=== PATIENT | female | born 1980 | race Caucasian/White ===

== ENCOUNTER → 2018-12-16 | Outpatient (CLI) | payer OTHER ==
[2018-12-16 11:07] LABS: ABSOLUTE LYMPHOCYTES 2.8 thou/uL (0.8-5.3); ABSOLUTE MONOCYTES 0.5 thou/uL (0.0-1.2); ABSOLUTE NEUTROPHILS 5.2 thou/uL (1.6-8.1); BASOPHILS 0.6 %; EOSINOPHILS 0.4 %; HEMATOCRIT 42.6 % (37.0-47.0); HEMOGLOBIN 14.5 gm/dL (12.0-15.0); LYMPHOCYTES 32.2 %; MCH 30.8 pg (26.0-34.0); MCV 90.4 fL (80.0-100.0); NUCLEATED RBCS 0 /100WBC; PLATELET COUNT* 511 thou/uL (150-400); POLYS 60.8 %; RBC 4.71 mil/uL (4.20-5.00); RDW-CV 12.8 % (10.5-14.5); WBC 8.6 thou/uL (4.0-11.0)
[2018-12-16 11:29] LABS: ALBUMIN 4.2 g/dL (3.4-5.0); CALCIUM 11.5 mg/dL (8.5-10.1); CREATININE 0.8 mg/dL (0.6-1.3); POTASSIUM 4.3 mmol/L (3.5-5.1); TOTAL BILIRUBIN 0.6 mg/dL (<0.1-1.0); TOTAL PROTEIN 7.5 g/dL (6.4-8.2)
== END ==
LOC: M.LAB 10:49
PROVIDERS: Family Medicine
DX: N83.202 Unspecified ovarian cyst, left side (principal); K76.0 Fatty (change of) liver, not elsewhere classified; M54.5 Low back pain

== ENCOUNTER → 2019-01-01 | Outpatient (CLI) | payer OTHER ==
[2019-01-01 07:48] LABS: ABSOLUTE LYMPHOCYTES 1.7 thou/uL (0.8-5.3); ABSOLUTE MONOCYTES 0.5 thou/uL (0.0-1.2); ABSOLUTE NEUTROPHILS 4.7 thou/uL (1.6-8.1); BASOPHILS 0.6 %; EOSINOPHILS 0.7 %; HEMATOCRIT 40.5 % (37.0-47.0); HEMOGLOBIN 13.7 gm/dL (12.0-15.0); LYMPHOCYTES 24.1 %; MCH 30.9 pg (26.0-34.0); MCHC 33.8 g/dL (28.0-37.0); MCV 91.5 fL (80.0-100.0); MONOCYTES 6.7 %; NUCLEATED RBCS 0 /100WBC; PLATELET COUNT* 444 thou/uL (150-400); POLYS 67.9 %; RBC 4.43 mil/uL (4.20-5.00); RDW-CV 13.5 % (10.5-14.5)
[2019-01-01 08:03] LABS: CALCIUM 8.9 mg/dL (8.5-10.1); CREATININE 0.8 mg/dL (0.6-1.3); PHOSPHORUS* 2.7 mg/dL (2.5-4.9)
[2019-01-01 08:08] LABS: ALBUMIN 3.9 g/dL (3.4-5.0); CALCIUM 9.6 mg/dL (8.5-10.1); CREATININE 0.8 mg/dL (0.6-1.3); POTASSIUM 4.1 mmol/L (3.5-5.1); TOTAL BILIRUBIN 0.5 mg/dL (<0.1-1.0); TOTAL PROTEIN 7.8 g/dL (6.4-8.2)
[2019-01-01 22:42] LABS: CHOLESTEROL 159 mg/dL (<200); HDL CHOLESTEROL 38 mg/dL (>40); LDL CHOLESTEROL 106 mg/dL (<100); TC:HDL 4.2 Ratio (Not establshd); TRIGLYCERIDE 76 mg/dL (<150); VLDL 15 mg/dL (<40)
[2019-01-01 22:44] LABS: SERUM ASSESSMENT Clear
[2019-01-01 23:07] LABS: GLYCOHEMOGLOBIN (HGB A1C) 5.9 % (4.8-5.6)
== END ==
LOC: M.LAB 07:21
PROVIDERS: Family Medicine
DX: E83.52 Hypercalcemia (principal); E11.9 Type 2 diabetes mellitus without complications

== ENCOUNTER → 2019-04-11 | Outpatient (CLI) | payer OTHER ==
[2019-04-11 08:20] LABS: ABSOLUTE MONOCYTES 0.5 thou/uL (0.0-1.2); ABSOLUTE NEUTROPHILS 3.7 thou/uL (1.6-8.1); BASOPHILS 0.5 %; EOSINOPHILS 0.6 %; HEMATOCRIT 43.6 % (37.0-47.0); HEMOGLOBIN 14.8 gm/dL (12.0-15.0); MCH 31.5 pg (26.0-34.0); MCHC 34.1 g/dL (28.0-37.0); MCV 92.5 fL (80.0-100.0); MONOCYTES 7.7 %; MPV 6.9 fl. (7.2-11.1); NUCLEATED RBCS 0 /100WBC; PLATELET COUNT* 488 thou/uL (150-400); POLYS 59.2 %; RBC 4.71 mil/uL (4.20-5.00); RDW-CV 13.5 % (10.5-14.5); WBC 6.3 thou/uL (4.0-11.0)
[2019-04-11 08:31] LABS: ALBUMIN 4.3 g/dL (3.4-5.0); ALKALINE PHOSPHATASE 63 U/L (46-116); ANION GAP 8 mmol/L (7-16); BUN 13 mg/dL (7-18); CALCIUM 9.3 mg/dL (8.5-10.1); CHLORIDE 103 mmol/L (98-107); CHOLESTEROL 164 mg/dL (<200); CO2 29 mmol/L (21-32); CREATININE 0.7 mg/dL (0.6-1.3); GLUCOSE 83 mg/dL (70-99); HDL CHOLESTEROL 38 mg/dL (>40); LDL CHOLESTEROL 105 mg/dL (<100); POTASSIUM 4.6 mmol/L (3.5-5.1); SGOT 16 U/L (15-37); SGPT 33 U/L (30-65); SODIUM 140 mmol/L (136-145); TC:HDL 4.3 Ratio (Not establshd); TOTAL BILIRUBIN 0.4 mg/dL (<0.1-1.0); TOTAL PROTEIN 7.9 g/dL (6.4-8.2); TRIGLYCERIDE 106 mg/dL (<150); VLDL 21 mg/dL (<40)
[2019-04-11 08:41] LABS: SERUM ASSESSMENT Clear
[2019-04-11 23:07] LABS: GLYCOHEMOGLOBIN (HGB A1C) 5.5 % (4.8-5.6)
== END ==
LOC: M.LAB 07:46
PROVIDERS: Family Medicine
DX: E11.9 Type 2 diabetes mellitus without complications (principal); G43.909 Migraine, unspecified, not intractable, without status migrainosus; E83.52 Hypercalcemia; M54.5 Low back pain; R79.89 Other specified abnormal findings of blood chemistry; F51.01 Primary insomnia

== ENCOUNTER → 2019-05-19 | Outpatient (CLI) | payer OTHER ==
[2019-05-19 17:25] LABS: HEMATOCRIT 42.3 % (37.0-47.0); HEMOGLOBIN 14.4 gm/dL (12.0-15.0); MCH 31.3 pg (26.0-34.0); MCHC 34.1 g/dL (28.0-37.0); MCV 91.7 fL (80.0-100.0); MPV 7.2 fl. (7.2-11.1); NUCLEATED RBCS 0 /100WBC; PLATELET COUNT* 497 thou/uL (150-400); RBC 4.61 mil/uL (4.20-5.00); RDW-CV 13.1 % (10.5-14.5); WBC 7.8 thou/uL (4.0-11.0)
[2019-05-19 17:53] LABS: % SATURATION 31 % (20-39); IRON 103 ug/dL (50-175)
[2019-05-19 18:19] LABS: ABSOLUTE LYMPHOCYTES 2.7 thou/uL (0.8-5.3); ABSOLUTE MONOCYTES 0.5 thou/uL (0.0-1.2); ABSOLUTE NEUTROPHILS 4.6 thou/uL (1.6-8.1); PLATELET ESTIMATE ADEQUATE
[2019-05-20 17:06] LABS: IgA 201 mg/dL (87-352); IgG 935 mg/dL (700-1600); IgM 135 mg/dL (26-217)
[2019-05-21 08:11] LABS: HEMOGLOBIN 14.5 g/dL (11.1-15.9)
[2019-05-23 16:06] LABS: GLOBULIN TOTAL 3.5 g/dL (2.2-3.9); M-SPIKE Not Observed g/dL (Not Observed)
== END ==
LOC: M.LAB 16:12
PROVIDERS: Internal Medicine Hematology & Oncology
DX: D47.3 Essential (hemorrhagic) thrombocythemia (principal)